=== PATIENT | female | born 1970 ===

== ENCOUNTER 2021-01-05 09:39 | Inpatient (IN) ==
[2020-12-29 13:03] LABS: Bilirubin,Urine Negative (Negative); Blood, Urine Negative (Negative); Glucose,Urine (UA) >=500 mg/dL (Negative); Ketones,Urine Negative (Negative); Mucus,Urine Occasional /LPF (Occasional); Nitrite,Urine Negative (Negative); Protein,Urine >=500 MG/DL; RBC,Urine 4 /HPF (0-4); Squamous Epithelial Cell,Urine Occasional /HPF (0-10); Urine Appearance CLEAR (Clear); Urine Color Yellow (Yellow); Urine Specific Gravity 1.018 (1.001-1.035); Urine Urobilinogen < 2.0 EU/DL (0.2-1.0)
[2020-12-29 13:08] LABS: Basophils % 0.2 % (0.0-0.8); Eosinophils # 0.1 10*3/uL (0.0-0.87); Eosinophils % 2.5 % (0.00-10.9); Hematocrit 32.4 VOL% (35.7-47.0); Hemoglobin 9.8 GM/DL (12.0-16.0); Immature Granulocytes % 0.2 %; Immature Granulocytes Absolute 0.01 #; Lymphocytes # 1.4 10*3/uL (1.4-4.0); Lymphocytes % 31.6 % (21.3-54.2); Mean Corpuscular HGB Conc 30.2 GM/DL (32-36); Mean Corpuscular Volume 77.1 FL (87-102); Mean Platelet Volume 9.6 FL (9.6-12.0); Monocytes % 7.1 % (1.7-12.7); Neutrophils % 58.4 % (38.7-73.9); Platelet Count 232 T/CUMM (130-400); White Blood Count 4.4 T/CUMM (4-12)
[2020-12-29 13:09] LABS: Bilirubin,Total 1.3 MG/DL (0.20-1.00); Calcium 8.1 MG/DL (8.5-10.1); Osmolality,Calculated 293.4 MOS/KG (273-304); Potassium 4.3 MMOL/L (3.5-5.1); Risk Ratio 4.2; Total Protein 5.6 G/DL (6.4-8.2); VLDL Cholesterol 58.2 MG/DL
[2020-12-29 14:00] LABS: HIV Antigen/Antibody Result Nonreactive (Nonreactive)
[~2021-01-05 09:39] MED LIST: ACETAMINOPHEN 500 MG TABLET PO ONE; DIAZEPAM 5 MG TABLET PO ONE; FAMOTIDINE 20 MG TABLET PO ONE; GABAPENTIN 400 MG CAPSULE PO ONE; LACTATED RINGERS 1,000 ML IV SCH
[2021-01-05] MEDS ORDERED: ACETAMINOPHEN 500 MG TABLET ONE (09:57)
[2021-01-05] MEDS ORDERED: GABAPENTIN 400 MG CAPSULE ONE (09:57)
[2021-01-05] MEDS ORDERED: DIAZEPAM 5 MG TABLET ONE (09:57)
[2021-01-05] MEDS ORDERED: FAMOTIDINE 20 MG TABLET ONE (09:57)
[2021-01-05] MEDS ORDERED: AMPICILLIN/SULBACTAM 3,000 MG VIAL ONE (09:58)
[2021-01-05] MEDS ORDERED: LACTATED RINGERS 1,000 ML IV SCH ×2 (10:00→16:00)
[2021-01-05] MEDS ORDERED: fentaNYL 100 MCG/2 ML VIAL ONE (14:00)
[2021-01-05] MEDS ORDERED: DEXAMETHASONE 4 MG/1 ML VIAL ONE ×3 (14:14→15:25)
[2021-01-05] MEDS ORDERED: ONDANSETRON 4 MG/2 ML VIAL ONE (14:14)
[2021-01-05] MEDS ORDERED: propofoL 200 MG/20 ML VIAL IV ONE (14:15)
[2021-01-05] MEDS ORDERED: LIDOCAINE 2% 5 ML VIAL ONE (14:15)
[2021-01-05] MEDS ORDERED: ROCURONIUM 50 MG/5 ML VIAL IV ONE (14:15)
[2021-01-05] MEDS ORDERED: LACTATED RINGERS 1,000 ML IV ONE (15:02)
[2021-01-05] MEDS ORDERED: GLYCOPYRROLATE 0.4 MG/2 ML VIAL ONE (15:10)
[2021-01-05] MEDS ORDERED: NEOSTIGMINE 10 MG/10 ML VIAL ONE (15:10)
[2021-01-05] MEDS ORDERED: ROPIVACAINE 0.5% 30 ML VIAL ONE (15:25)
[2021-01-05] MEDS ORDERED: BENZOCAINE/MENTHOL LOZENGE 18/BOX PO PRN (15:36)
[2021-01-05] MEDS ORDERED: BISACODYL 10 MG SUPP RECTAL PRN (15:36)
[2021-01-05] MEDS ORDERED: ONDANSETRON 4 MG/2 ML VIAL IV PRN ×2 (15:36→15:40)
[2021-01-05] MEDS ORDERED: ACETAMINOPHEN 325 MG TABLET PO PRN (15:36)
[2021-01-05] MEDS ORDERED: HYDROmorphone 2 MG/1 ML VIAL IV PRN (15:37)
[2021-01-05] MEDS ORDERED: PROMETHAZINE INJ 25 MG in SODIUM CHLORIDE 0.9% 50 ML IV PRN (15:40)
[2021-01-05] MEDS ORDERED: diphenhydrAMINE 50 MG/1 ML VIAL IV PRN (15:40)
[2021-01-05] MEDS ORDERED: MEPERIDINE 25 MG/1 ML VIAL IV PRN (15:40)
[2021-01-05] MEDS ORDERED: hydrALAZINE 20 MG/1 ML VIAL IV ONE (15:41)
[2021-01-05] MEDS ORDERED: LIDOCAINE 50 MG/5 ML SYRINGE ONE (15:43)
[2021-01-05 16:02] LABS: Bacteria,Urine Occasional /HPF (Few); Bilirubin,Urine Negative (Negative); Blood, Urine Negative (Negative); Glucose,Urine (UA) >=500 mg/dL (Negative); Hyaline Casts,Urine 7 /LPF (0-3); Ketones,Urine Negative (Negative); Nitrite,Urine Negative (Negative); Protein,Urine >=500 MG/DL; RBC,Urine 7 /HPF (0-4); Squamous Epithelial Cell,Urine Occasional /HPF (0-10); Urine Appearance Slightly Hazy (Clear); Urine Color Yellow (Yellow); Urine Urobilinogen < 2.0 EU/DL (0.2-1.0)
[2021-01-05] MEDS: HYDROmorphone 2 MG/1 ML VIAL IV PRN ×4 (16:05→16:20)
[2021-01-05] MEDS ORDERED: SEVOFLURANE 1 UNIT/15 MINUTE INH ONE (16:10)
[2021-01-05] MEDS ORDERED: INFLUENZA VIRUS VACCINE 0.5 ML SYRINGE IM ONE (16:43)
[2021-01-05] MEDS ORDERED: GLUCAGON 1 MG VIAL IM PRN (18:52)
[2021-01-05] MEDS ORDERED: DEXTROSE 50% 25 GM/50 ML VIAL IV PRN (18:52)
[2021-01-05] MEDS ORDERED: SODIUM CHLORIDE 0.9% 1,000 ML IV SCH (19:00)
[2021-01-05] MEDS: IBUPROFEN 800 MG TABLET PO PRN (20:46)
[2021-01-05] MEDS ORDERED: INSULIN REGULAR 100 UNIT/ML SUBCUT SCH (21:00)
[2021-01-05 23:09] LABS: Hematocrit 30.8 VOL% (35.7-47.0); Hemoglobin 9.5 GM/DL (12.0-16.0); Immature Granulocytes % 0.5 %; Immature Granulocytes Absolute 0.04 #; Lymphocytes # 0.4 10*3/uL (1.4-4.0); Lymphocytes % 4.9 % (21.3-54.2); Mean Corpuscular HGB Conc 30.8 GM/DL (32-36); Mean Corpuscular Volume 77.6 FL (87-102); Mean Platelet Volume 9.4 FL (9.6-12.0); Monocytes % 1.3 % (1.7-12.7); Neutrophils % 93.3 % (38.7-73.9); Platelet Count 226 T/CUMM (130-400); Red Blood Count 3.97 MC/CUMM (3.8-5.5); Red Cell Distribution Width 18.1 % (9.3-17.3); White Blood Count 8.2 T/CUMM (4-12)
[2021-01-05 23:45] LABS: Lymphocytes 3 % (20-55); Platelet Estimate Normal; Segmented Neutrophils 96 % (50-85); Total Cells Counted 100
[2021-01-05 23:46] LABS: Hypochromasia Slight; Microcytosis Slight
[2021-01-06] MEDS: INSULIN REGULAR 100 UNIT/ML SUBCUT SCH ×5 (04:26→23:55)
[2021-01-06 06:53] LABS: Hematocrit 28.3 VOL% (35.7-47.0); Hemoglobin 8.8 GM/DL (12.0-16.0); Immature Granulocytes % 0.5 %; Immature Granulocytes Absolute 0.04 #; Lymphocytes # 0.9 10*3/uL (1.4-4.0); Lymphocytes % 12.2 % (21.3-54.2); Mean Corpuscular HGB Conc 31.1 GM/DL (32-36); Mean Corpuscular Volume 77.1 FL (87-102); Mean Platelet Volume 9.9 FL (9.6-12.0); Monocytes % 7.1 % (1.7-12.7); Neutrophils % 80.2 % (38.7-73.9); Platelet Count 246 T/CUMM (130-400); Red Blood Count 3.67 MC/CUMM (3.8-5.5); Red Cell Distribution Width 18.3 % (9.3-17.3); White Blood Count 7.3 T/CUMM (4-12)
[2021-01-06] MEDS: DOCUSATE SODIUM 100 MG CAPSULE PO PRN ×2 (08:34→21:42)
[2021-01-06] MEDS: METOCLOPRAMIDE 10 MG TABLET PO SCH ×2 (08:34→15:35)
[2021-01-06] MEDS: INSULIN GLARGINE 100 UNIT/ML SUBCUT SCH (09:55)
[2021-01-06] MEDS: IBUPROFEN 800 MG TABLET PO PRN ×2 (11:22→23:54)
[2021-01-06] MEDS ORDERED: INSULIN GLARGINE 100 UNIT/ML SUBCUT SCH (21:00)
[2021-01-06] MEDS: MAGNESIUM HYDROXIDE SUSP 30 ML UDCUP PO PRN (21:41)
[2021-01-07] MEDS: METOCLOPRAMIDE 10 MG TABLET PO SCH ×2 (00:13→08:13)
[2021-01-07] MEDS: INSULIN REGULAR 100 UNIT/ML SUBCUT SCH ×2 (05:56→11:53)
[2021-01-07] MEDS: MAGNESIUM HYDROXIDE SUSP 30 ML UDCUP PO PRN (08:13)
[2021-01-07] MEDS: INSULIN GLARGINE 100 UNIT/ML SUBCUT SCH (08:13)
[2021-01-07 08:58] VITALS: BP 130/58
== END 2021-01-07 13:31 | disposition home or self-care (01) | DRG 743 ==
LOC: N.OR 09:39 → N.SDSINP 09:40 → EDSTATUS 15:00 → N.SDSINP 15:36 → N.OB 16:38
PROVIDERS: ADMIT Obstetrics & Gynecology; ATTEND Obstetrics & Gynecology

== ENCOUNTER 2022-01-02 11:44 | Inpatient (IN) ==
[2022-01-02] MEDS ORDERED: INFLUENZA VIRUS VACCINE 0.5 ML SYRINGE IM ONE (13:36)
[2022-01-02] MEDS ORDERED: PNEUMOCOCCAL VACCINE (23 VALENT) 0.5 ML VIAL IM ONE (13:36)
[2022-01-02] MEDS ORDERED: ONDANSETRON 4 MG/2 ML VIAL IV PRN (15:50)
[2022-01-02] MEDS ORDERED: ALBUTEROL/IPRATROPIUM 3 ML NEB RESP TX PRN (15:50)
[2022-01-02] MEDS ORDERED: guaiFENesin/DM ER 600-30 MG TABLET PO PRN (15:50)
[2022-01-02 16:34] LABS: Basophils % 0.7 % (0.0-0.8); Eosinophils # 0.2 10*3/uL (0.0-0.87); Eosinophils % 5.5 % (0.00-10.9); Hematocrit 25.8 VOL% (35.7-47.0); Hemoglobin 8.1 GM/DL (12.0-16.0); Immature Granulocytes % 0.2 %; Immature Granulocytes Absolute 0.01 #; Lymphocytes # 1.2 10*3/uL (1.4-4.0); Mean Corpuscular HGB Conc 31.4 GM/DL (32-36); Mean Corpuscular Volume 88.7 FL (87-102); Mean Platelet Volume 9.1 FL (9.6-12.0); Monocytes # 0.3 10*3/uL (0.11-0.8); Monocytes % 8.4 % (1.7-12.7); Neutrophils % 56.2 % (38.7-73.9); Platelet Count 197 T/CUMM (130-400); Red Blood Count 2.91 MC/CUMM (3.8-5.5); Red Cell Distribution Width 15.1 % (9.3-17.3)
[2022-01-02 16:54] LABS: Alanine Aminotransferase 24 U/L (13-56); Albumin 1.7 G/DL (3.4-5.0); Alkaline Phosphatase 81 U/L (45-117); Aspartate Amino Transferase 21 U/L (0-37); Bilirubin,Total < 0.39 MG/DL (0.20-1.00); Blood Urea Nitrogen 53 MG/DL (7-18); Carbon Dioxide 21 MMOL/L (21-32); Chloride 121 MMOL/L (98-107); Glucose 97 MG/DL (74-106); Osmolality,Calculated 303.6 MOS/KG (273-304); Sodium 146 MMOL/L (136-145); Total Protein 5.5 G/DL (6.4-8.2)
[2022-01-02] MEDS: hydrALAZINE 20 MG/1 ML VIAL IV PRN (17:38)
[2022-01-02 18:00] LABS: Hepatitis B Core IgM Quant 0.15 Index; Hepatitis B Surface Ag Quant < 0.10 Index; Hepatitis B Surface Ag Result Non-Reactive (NonReactive); Hepatitis C Virus Ab Quant 0.06 Index; Hepatitis C Virus Ab Result Non-Reactive (NonReactive)
[2022-01-02 19:34] LABS: Bacteria,Urine Occasional /HPF (Few); Hyaline Casts,Urine 1 /LPF (0-3); Mucus,Urine Occasional /LPF (Occasional); Squamous Epithelial Cell,Urine Occasional /HPF (0-10)
[2022-01-02 19:35] LABS: Bilirubin,Urine Negative (Negative); Blood, Urine Moderate mg/dL (Negative); Glucose,Urine (UA) 100 mg/dL (Negative); Ketones,Urine Negative (Negative); Nitrite,Urine Negative (Negative); Protein,Urine >=300 mg/dL (Negative); Urine Appearance Clear (Clear); Urine Color Yellow (Yellow); Urine Urobilinogen 0.2 eU/dL (<2.0)
[2022-01-02] MEDS: hydrALAZINE 25 MG TABLET PO SCH (21:15)
[2022-01-03] MEDS: hydrALAZINE 20 MG/1 ML VIAL IV PRN (04:57)
[2022-01-03 06:11] LABS: Basophils % 0.4 % (0.0-0.8); Eosinophils # 0.2 10*3/uL (0.0-0.87); Eosinophils % 5.4 % (0.00-10.9); Hematocrit 24.9 VOL% (35.7-47.0); Hemoglobin 7.7 GM/DL (12.0-16.0); Immature Granulocytes % 0.2 %; Immature Granulocytes Absolute 0.01 #; Lymphocytes # 1.2 10*3/uL (1.4-4.0); Lymphocytes % 27.4 % (21.3-54.2); Mean Corpuscular HGB Conc 30.9 GM/DL (32-36); Mean Corpuscular Volume 90.5 FL (87-102); Mean Platelet Volume 9.9 FL (9.6-12.0); Monocytes # 0.4 10*3/uL (0.11-0.8); Monocytes % 9.4 % (1.7-12.7); Neutrophils % 57.2 % (38.7-73.9); Platelet Count 209 T/CUMM (130-400); Red Blood Count 2.75 MC/CUMM (3.8-5.5); Red Cell Distribution Width 15.1 % (9.3-17.3); White Blood Count 4.5 T/CUMM (4-12)
[2022-01-03 06:43] LABS: Risk Ratio 3.17; Thyroid Stimulating Hormone 4.17 uIU/ml (0.358-3.74); VLDL Cholesterol 25.4 MG/DL
[2022-01-03] MEDS ORDERED: ceFAZolin 2,000 MG/50 ML DUPLEX IV ONE (08:00)
[2022-01-03] MEDS ORDERED: INSULIN REGULAR 10 UNIT, CALCIUM GLUCONATE 1,000 MG in DEXTROSE 10% 250 ML IV ONE (08:06)
[2022-01-03] MEDS: MULTIVITAMIN (CENTRUM) TABLET PO SCH (08:38)
[2022-01-03] MEDS: PANTOPRAZOLE 40 MG TABLET PO SCH (08:38)
[2022-01-03] MEDS: hydrALAZINE 25 MG TABLET PO SCH ×2 (08:39→21:07)
[2022-01-03] MEDS: amLODIPine 10 MG TABLET PO SCH (08:39)
[2022-01-03] MEDS: FERROUS SULFATE 325 MG TABLET PO SCH (08:39)
[2022-01-03] MEDS ORDERED: LIDOCAINE 2%/EPI 20 ML VIAL ONE (14:00)
[2022-01-03] MEDS ORDERED: HEPARIN 5,000 UNIT/1 ML VIAL ONE (14:00)
[2022-01-03] MEDS ORDERED: BUPIVACAINE MPF 0.25% 10 ML VIAL ONE (14:00)
[2022-01-03] MEDS ORDERED: SODIUM CHLORIDE 0.9% 250 ML IV SCH (14:30)
[2022-01-03] MEDS ORDERED: MIDAZOLAM 2 MG/2 ML VIAL ONE (15:01)
[2022-01-03] MEDS ORDERED: fentaNYL 100 MCG/2 ML VIAL ONE (15:47)
[2022-01-03] MEDS ORDERED: HEPARIN 10,000 UNIT/10 ML VIAL IV SCH (17:30)
[2022-01-03] MEDS: ACETAMINOPHEN 325 MG TABLET PO PRN (21:07)
[2022-01-04 05:24] LABS: Basophils % 0.5 % (0.0-0.8); Eosinophils # 0.2 10*3/uL (0.0-0.87); Eosinophils % 5.1 % (0.00-10.9); Hematocrit 22.3 VOL% (35.7-47.0); Hemoglobin 6.8 GM/DL (12.0-16.0); Lymphocytes % 24.3 % (21.3-54.2); Mean Corpuscular HGB Conc 30.5 GM/DL (32-36); Mean Corpuscular Volume 89.2 FL (87-102); Mean Platelet Volume 9.6 FL (9.6-12.0); Monocytes # 0.4 10*3/uL (0.11-0.8); Monocytes % 9.1 % (1.7-12.7); Platelet Count 167 T/CUMM (130-400); Red Cell Distribution Width 15.3 % (9.3-17.3)
[2022-01-04 05:46] LABS: Calcium 7.7 MG/DL (8.5-10.1); Osmolality,Calculated 293.8 MOS/KG (273-304); Potassium 4.9 MMOL/L (3.5-5.1)
[2022-01-04] MEDS ORDERED: SODIUM CHLORIDE 0.9% 1,000 ML IV PRN (07:32)
[2022-01-04] MEDS: MULTIVITAMIN (CENTRUM) TABLET PO SCH (08:13)
[2022-01-04] MEDS: hydrALAZINE 25 MG TABLET PO SCH ×2 (08:13→20:39)
[2022-01-04] MEDS: amLODIPine 10 MG TABLET PO SCH (08:13)
[2022-01-04] MEDS: FERROUS SULFATE 325 MG TABLET PO SCH ×2 (08:13→20:40)
[2022-01-04] MEDS: PANTOPRAZOLE 40 MG TABLET PO SCH (08:13)
[2022-01-04] MEDS: ACETAMINOPHEN 325 MG TABLET PO PRN (14:41)
[2022-01-04] MEDS ORDERED: ATORVASTATIN 20 MG TABLET PO SCH (21:00)
[2022-01-04] MEDS ORDERED: INSULIN GLARGINE 100 UNIT/ML SUBCUT SCH ×2 (21:00)
[2022-01-05 05:11] LABS: Basophils % 0.4 % (0.0-0.8); Eosinophils # 0.2 10*3/uL (0.0-0.87); Eosinophils % 4.2 % (0.00-10.9); Hematocrit 31.7 VOL% (35.7-47.0); Hemoglobin 10.1 GM/DL (12.0-16.0); Immature Granulocytes % 0.4 %; Immature Granulocytes Absolute 0.02 #; Lymphocytes # 1.5 10*3/uL (1.4-4.0); Lymphocytes % 28.1 % (21.3-54.2); Mean Corpuscular HGB Conc 31.9 GM/DL (32-36); Mean Corpuscular Volume 87.8 FL (87-102); Mean Platelet Volume 9.5 FL (9.6-12.0); Monocytes # 0.5 10*3/uL (0.11-0.8); Monocytes % 9.9 % (1.7-12.7); Platelet Count 144 T/CUMM (130-400); Red Blood Count 3.61 MC/CUMM (3.8-5.5); Red Cell Distribution Width 14.6 % (9.3-17.3); White Blood Count 5.3 T/CUMM (4-12)
[2022-01-05 05:32] LABS: Calcium 7.7 MG/DL (8.5-10.1); Osmolality,Calculated 282.3 MOS/KG (273-304); Potassium 4.3 MMOL/L (3.5-5.1)
[2022-01-05] MEDS: hydrALAZINE 25 MG TABLET PO SCH (07:59)
[2022-01-05] MEDS: FERROUS SULFATE 325 MG TABLET PO SCH (07:59)
[2022-01-05] MEDS: PANTOPRAZOLE 40 MG TABLET PO SCH (07:59)
[2022-01-05] MEDS: amLODIPine 10 MG TABLET PO SCH (07:59)
[2022-01-05] MEDS: MULTIVITAMIN (CENTRUM) TABLET PO SCH (07:59)
[2022-01-05] MEDS ORDERED: cloNIDine 0.1 MG TABLET PO ONE (15:00)
[2022-01-05 17:56] VITALS: BP 165/84
== END 2022-01-05 16:53 | disposition home or self-care (01) | DRG 674 ==
LOC: SUATTDRO 12:37 → N.5E 12:37
PROVIDERS: ADMIT Internal Medicine; ATTEND Internal Medicine